=== PATIENT | female | born 1990 | race Caucasian/White ===

== ENCOUNTER 2018-05-04 22:12 | Emergency (ER) | payer OTHER ==
[~2018-05-04] VITALS: Ht 157.5 cm; Wt 72.6 kg
[~2018-05-04 22:12] MED LIST: CLEOCIN HCL300 MG PO; PERCOCET 5/3251 TAB PO
== END 2018-05-04 23:13 | disposition home or self-care (01) ==
LOC: ER 22:12
DX: H60.02 Abscess of left external ear (principal)